=== PATIENT | female | born 1990 | race Caucasian/White ===

== ENCOUNTER 2023-11-19 02:29 | Emergency (ER) | payer BC ==
[~2023-11-19 02:29] MED LIST: Enoxaparin 80 MG/0.8 ML Syringe SUBCUT SCH
[2023-11-19] MEDS: HYDROmorphone 0.5 MG/0.5 ML Syringe IVPUSH ONE (02:43)
[2023-11-19 02:45] LABS: BASOPHILS ABSOLUTE AUTO 0.03 K/uL (0.00-0.10); BASOPHILS PERCENT AUTO 0.5 % (0.1-1.3); EOSINOPHILS ABSOLUTE AUTO 0.31 K/uL (0.00-0.40); EOSINOPHILS PERCENT AUTO 5.1 % (0.0-5.4); HEMATOCRIT 43.1 % (34.3-46.0); HEMOGLOBIN 14.6 g/dL (11.2-15.5); IMMATURE GRAN PERCENT AUTO 0.2 % (0.0-0.7); LYMPHOCYTES ABSOLUTE AUTO 2.53 K/uL (0.8-3.3); LYMPHOCYTES PERCENT AUTO 41.9 % (11.4-47.7); MEAN CORPUSCULAR HEMOGLOBIN 33.9 pg (31.6-35.5); MEAN CORPUSCULAR HGB CONC 33.9 g/dL (31.6-35.5); MONOCYTES ABSOLUTE AUTO 0.32 K/uL (0.20-0.90); MONOCYTES PERCENT AUTO 5.3 % (3.3-12.6); NEUTROPHILS ABSOLUTE AUTO 2.84 K/uL (1.0-7.6); PLATELET COUNT,PLT 257 K/uL (130-375); RED BLOOD CELL COUNT 4.31 M/uL (3.77-5.24)
[2023-11-19 02:46] LABS: IMMATURE GRAN ABSOLUTE AUTO 0.01 K/uL (0.00-0.23)
[2023-11-19 03:16] LABS: A/G RATIO 0.8 (1.2-2.2); ALANINE AMINOTRANSFERASE,ALT 47 U/L (12-78); ALBUMIN 3.4 g/dL (3.4-5.0); ALKALINE PHOSPHATASE 125 U/L (46-116); ASPARTATE AMNIOTRANSFERASE,AST 23 U/L (15-37); BILIRUBIN TOTAL 0.3 mg/dL (0.2-1.0); BLOOD UREA NITROGEN,BUN 13 mg/dL (7-18); CALCIUM 9.1 mg/dL (8.5-10.1); CARBON DIOXIDE,CO2 27 mmol/L (21-32); CREATININE 0.9 mg/dL (0.6-1.0); EST CRCL DRUG DOSING (CG) 77.49 mL/min; ESTIMATED GFR 87 mL/min (>60); GLUCOSE RANDOM 113 mg/dL (74-106); PROTEIN TOTAL,TP 7.6 g/dL (6.4-8.2)
[2023-11-19 03:24] LABS: ANION GAP 14.5 mmol/L (5.0-14.0); CHLORIDE,CL 107 mmol/L (100-108); POTASSIUM,K 4.5 mmol/L (3.6-5.2); SODIUM,NA 144 mmol/L (140-148)
[2023-11-19] MEDS: Iopamidol 755 Mg/ML 100 ML Bottle IV STA (04:18)
[2023-11-19] MEDS: Sodium Chloride 0.9% 100 ML IV STA (04:18)
[2023-11-19 04:24] LABS: APPEARANCE,URINE CLEAR (CLEAR); BILIRUBIN,URINE NEGATIVE (NEGATIVE); COLOR,URINE YELLOW (YELLOW); GLUCOSE,URINE NEGATIVE (NEGATIVE); KETONES,URINE NEGATIVE (NEGATIVE); LEUKOCYTE ESTERASE,URINE NEGATIVE (NEGATIVE); NITRITE,URINE NEGATIVE (NEGATIVE); OCCULT BLOOD,URINE TRACE-INTACT (NEGATIVE); PROTEIN,URINE NEGATIVE (NEGATIVE); UROBILINOGEN,URINE 0.2 EU/dL (0.2-1.0)
[2023-11-19 04:44] LABS: AMORPHOUS SEDIMENT,URINE FEW; BACTERIA,URINE FEW; EPITHELIAL CELLS,URINE FEW; MUCUS,URINE NOT SEEN; RBC,URINE 0-5 (0-5); WBC,URINE 0-5 (0-5)
[2023-11-19] MEDS: Enoxaparin 80 MG/0.8 ML Syringe SUBCUT ONE (06:15)
[2023-11-19] MEDS ORDERED: Enoxaparin 80 MG/0.8 ML Syringe SUBCUT ONE (08:25)
== END 2023-11-19 09:09 | disposition home or self-care (01) ==
LOC: JP.ED 02:29
DX: O99.43 Diseases of the circulatory system complicating the puerperium (principal); I26.99 Other pulmonary embolism without acute cor pulmonale
CPT/HCPCS: 36415; 71045; 71275; 80053; 81001; 84484; 85025; 85379; 96372; 96374; 99285; J1170; J1650; J3490; Q9967